=== PATIENT | female | born 1965 | race Two or more races ===

== ENCOUNTER 2017-10-27 17:47 | Emergency (ER) | payer MEDICAID ==
[~2017-10-27] VITALS: Ht 142.2 cm; Wt 68.0 kg
[2017-10-27 18:02] VITALS: BP 113/74
[2017-10-27] MEDS ORDERED: HYDROcodone-ACET 10/325MG TAB PO ONE (22:00)
== END 2017-10-27 22:25 | disposition home or self-care (01) ==
LOC: ER 17:53
DX: S62.306A Unspecified fracture of fifth metacarpal bone, right hand, initial encounter for closed fracture (principal); W19.XXXA Unspecified fall, initial encounter; Y93.89 Activity, other specified; Y92.89 Other specified places as the place of occurrence of the external cause; Y99.8 Other external cause status
CPT/HCPCS: 29125; 73130